=== PATIENT | male | born 1985 | race Caucasian/White ===

== ENCOUNTER 2017-04-19 19:39 | Emergency (ER) | payer OTHER ==
[~2017-04-19] VITALS: Ht 167.6 cm; Wt 77.1 kg
[~2017-04-19 19:39] MED LIST: Bactrim Ds Tab1 EACH PO; Bactroban22 GM TOP; CEPH500 PO; CIPR500 PO; CIPR750 PO; Cleocin HCl150 MG PO; DOXY100 PO; DOXY100T53 PO; Doxycycline Hy100 MG PO; FAMO20 PO; HYDACE10B PO; HYDACE5 PO; HYDACE5325 PO; IBUP800 PO; INDO25 PO; LEVAQUIN-D750 MG/150 IV; LEVFLO500 PO; LORA2L IV; MUPI1NAS TOP; PENVK500 PO; RXHYDACE PO; RXPROACE PO; SULTRIDS PO; Ultram50 MG PO; Vibramycin100 MG PO; Zithromax250 MG PO; Zofran2 MG/1 ML IV
[2017-04-19] MEDS ORDERED: TRAZ100 PO (22:29)
[2017-04-19] MEDS ORDERED: SUBOXONE 8 MG-1 EACH PO (22:29)
[2017-04-20] MEDS ORDERED: Vibramycin100 MG PO (00:16)
== END 2017-04-20 00:20 | disposition home or self-care (01) ==
LOC: ER 19:39
DX: N45.1 Epididymitis (principal); N43.3 Hydrocele, unspecified; F17.210 Nicotine dependence, cigarettes, uncomplicated; Z79.899 Other long term (current) drug therapy
CPT/HCPCS: 76870; 96372; 99284; J0696